=== PATIENT | male | born 1985 | race Caucasian/White ===

== ENCOUNTER 2022-07-19 11:40 | Day surgery (SDC) | payer OTHER, SELFPAY ==
[2022-07-19 12:02] VITALS: BMI 29.3
[2022-07-19 12:08] VITALS: BP 129/88; PULSE 70; RESP 16; TEMP 36.6
[2022-07-19] MEDS: SODIUM CHLORIDE 0.9 % (FLUSH) 10 ML SYRINGE IVF (12:20)
[2022-07-19] MEDS: LACTATED RINGERS 1000 ML 1,000 ML 100 ML IV (12:20)
--- NOTE | 2022-07-19 12:36 | SUR.PREOP ---
Patient provided home covid negative results to RN.
--- NOTE | 2022-07-19 12:39 | SUR.PREOP ---
TIME?OUT:?1240 PT/RN/MDA?VERIFICATION?OF?SURGICAL?SITE,?PROCEDURE,?AND?CONSENT OBTAINED?PRIOR?TO?INVASIVE?PROCEDURE.
[2022-07-19 12:40] VITALS: BP 123/81; PULSE 70; RESP 16; O2SAT 98
[2022-07-19] MEDS: fentaNYL 100 MCG/2 ML inj IVP (12:40)
[2022-07-19] MEDS: MIDAZOLAM HCL 1 MG/ML inj IVP (12:40)
[2022-07-19 12:45] VITALS: BP 114/75; PULSE 55; RESP 16; O2SAT 100
--- NOTE | 2022-07-19 12:51 | P.NB_ITS ---
Nerve Block Nerve Block Time Seen by Provider: 12:42 Date Seen: 07/19/22 Type of block requested by surgeon for post-operative analgesia: axillary Side: right Time out performed: Yes Verification of patient name: Yes Verification of date of : Yes Site marking: site marked Name of person performing procedure: [place] Continuous monitoring Was continuous monitoring of O2 sat, B/P, campus monitor, recorded every 15 minutes?: Yes Procedure Checklist: sterile prep, needles and gloves Ultrasound guided. Images saved: Yes Medications given in 5ml increments after negative aspiration: Ropivicaine %: 0.5 mL: 30 Needle gauge: 22 Patient tolerated procedure well: Yes Additional comments: Needle noted adjacent to nerve Block Charges Block Charge (with Pro Fee): Brachial Plexus Use of Ultrasound Machine for Block: Yes- US Guidance/pain block
--- NOTE | 2022-07-19 12:52 | W.ANESCHARGE ---
Anesthesia Charges Start Date/Time Anesthesia Start Date: 07/19/22 Anesthesia Start Time: 12:49 Stop Date/Time Anesthesia Stop Date: 07/19/22 Anesthesia Stop Time: 14:35
[2022-07-19] MEDS: CEFAZOLIN 2 GM INJ IVP (13:00)
--- NOTE | 2022-07-19 13:00 | CRLHL7_ITS ---
For Patients: As a result of the Cures Act, medical imaging exams and procedure reports are released immediately into your electronic medical record. You may view this report before your referring provider. If you have questions, please contact your health care provider. Indication: INTRAOP RIGHT DISTAL BICEPS OPEN REPAIR Technique: One fluoroscopic image of the right elbow. Fluoroscopic time 1.8 seconds. IMPRESSION: Fluoroscopic guidance for biceps tendon repair. Dictated by Naun Melendez MD @ 07/20/2022 10:29:59 AM (Electronically Signed)
--- NOTE | 2022-07-19 14:17 | PM.ORPRC ---
Procedure Note Date of procedure: 07/19/22 Procedure: PREOPERATIVE DIAGNOSIS: Right distal biceps rupture, acute (2.5 weeks) POSTOPERATIVE DIAGNOSIS: Right distal biceps rupture, acute (2.5 weeks) PROCEDURE: 1. Right open distal biceps repair 2. 26376 - intraoperative fluoroscopy up to 1 hour. SURGEON: Paulino Chaudhry MD DIRECTOR OF PREMIUM SEAT SALES: Frantz AMADO (Of note, use of an oncology physician assistant was critical for this case to aid in patient positioning, tissue retraction, nerve protection, arm positioning, suture management, and closure as well as splint application.) ANESTHESIA: Supraclavicular block +mass TOURNIQUET: 55 minutes at 250 torr IMPLANTS: Arthrex tension slide distal Biceps Button with Bio[employer]posite interference screw 7 x 10mm. COMPLICATIONS: None evident INDICATIONS FOR PROCEDURE: The patient is a pleasant 36-year-old male, right hand dominant. They sustained an injury to the right distal biceps roughly 2.5 weeks ago. Upon evaluation, they were found to have a positive hook sign as well as positive MRI showing for cm retraction of the distal stump. Given the patient's use of this extremity, recommendation was made for surgery. DESCRIPTION OF PROCEDURE: Following a thorough discussion of the risks, benefits and alternatives, consent was obtained and the right forearm was marked. The patient was brought to the operating room, placed supine on the operating table. Induction of general anesthesia was undertaken after a supraclavicular block was administered in the preop holding. Appropriate time out was performed to identify proper patient, site and procedure. The operative upper extremity was prepped and draped in the appropriate sterile fashion using ChloraPrep prep. The limb was exsanguinated and the tourniquet inflated to 250 Torr after 2 g IV Ancef was administered within 1 hour of incision preoperatively. A transverse incision was made in line with the antecubital fossa crease approximately 4 cm distal to the crease itself. Sharp incision through the skin and blunt dissection through the subcutaneous tissue allowed protection of crossing neurologic and vascular structures. Blunt dissection was taken deep for identification of the radial tuberosity. Additionally, the lateral antebrachial cutaneous nerve was identified and protected throughout the case. We then turned our attention to retrieving the biceps stump. The stump was thought to be palpated initially proximally 5 cm retraction. We mobilized this tissue and found it was quite limited and frail. Further palpation up the anterior arm showed another secondary stump approximately 8-10 cm from the antecubital flexion crease. A secondary incision was made to access this indeed the stump was readily identifiable. It had flipped onto itself in a limited manner and this tissue was mobilized and debrided with rongeur and tenotomy scissors. The stump was assessed, and found to have good integrity but again relatively short. The musculotendinous junction was readily identifiable. At this stage, we promptly whipstitched the tendon with a FiberLoop. A shuttle suture allow this to shuttle this back down to the initial incision and then again underneath the large vascular structures consistent with where the 1st stump's path had revealed. After providing some tension, the tendon was able to be reduced back to the radial tuberosity. At this stage, we turned our attention to drilling our tunnel in the radial tuberosity. C-arm fluoroscopic imaging confirmed the proper pin location. The guide pin was drilled bicortically. The 8 mm Reamer was then drilled unicortically after confirming on C-arm fluoroscopic imaging to be in appropriate position at the radial tuberosity. The suture tails were then passed through the tension slide button and the button passed through the bicortical tunnel, and flipped. We then utilized this tension slide manner to reapproximate the tendon to the reamed hole. Once the tendon was dunked, with the elbow required flexion to approximately 100 degrees to allow the tendon to dunk, and 1 of the limbs was shuttled through the tendon at the bone-tendon junction and tied. 1 of the limbs was then brought through the interference screw and the screw was placed as a secondary mechanism to secure the tendon. Finally, the FiberWire was tied around the screw to add a secondary securing of this. Excellent screw purchase achieved. The tourniquet was deflated and hemostasis achieved. A thorough irrigation with normal saline was then performed followed by closure with 2-0 Vicryl and 4-0 Monocryl in subcutaneous and subcuticular layers. Dressings were applied. Posterior splint was applied. Patient awoke from anesthesia and was transferred to the Post-Anesthesia Care Unit in stable condition. PLAN: 1. Ice and elevate operative upper extremity. 2. Finger range of motion as tolerated. 3. Follow up with PA visit in 3-4 days. Splint removal, wound check, active range of motion operative elbow and forearm as tolerted. lift nothing more than a coffee cup x 6 weeks. 4. Ibuprofen, Tylenol, and/or Percocet for pain as needed.
--- NOTE | 2022-07-19 14:18 | W.ANESCHARGE ---
Anesthesia Charges Start Date/Time Anesthesia Start Date: 07/19/22 Anesthesia Start Time: 12:49 Stop Date/Time Anesthesia Stop Date: 07/19/22 Anesthesia Stop Time: 14:35
[2022-07-19 14:33] VITALS: BP 106/88; PULSE 58; RESP 16; TEMP 36.3; O2SAT 92
[2022-07-19 14:45] VITALS: BP 116/64; PULSE 85; RESP 18; O2SAT 92
[2022-07-19 15:00] VITALS: BP 117/89; PULSE 66; RESP 18; O2SAT 99
== END 2022-07-19 15:33 | disposition home or self-care (01) ==
PROVIDERS: PCP Family Medicine; Visit Provider Orthopaedic Surgery Sports Medicine
PROC: (CPT 24341; principal; 2022-07-19 13:30)
DX: S46.211A Strain of muscle, fascia and tendon of other parts of biceps, right arm, initial encounter (principal)
CPT/HCPCS: 24341; 01716; 73070; 76000; 76942; A4580; C1713; J0690; J1100; J2250; J2405; J2704; J2795; J3010; J3490; J7120